=== PATIENT | female | born 1945 | race African-American/Black ===

== ENCOUNTER 2018-05-03 08:55 | Outpatient (CLI) | payer OTHER | END 2018-05-03 10:42 | disposition home or self-care (01) | LOC: LAB 08:55 | DX: E55.9 Vitamin D deficiency, unspecified (principal); E78.2 Mixed hyperlipidemia; Z12.11 Encounter for screening for malignant neoplasm of colon; E11.69 Type 2 diabetes mellitus with other specified complication; E03.8 Other specified hypothyroidism; E11.610 Type 2 diabetes mellitus with diabetic neuropathic arthropathy; R10.84 Generalized abdominal pain; E78.4 Other hyperlipidemia; D50.8 Other iron deficiency anemias; B34.9 Viral infection, unspecified; N39.0 Urinary tract infection, site not specified; Z01.811 Encounter for preprocedural respiratory examination; D64.89 Other specified anemias; N36.8 Other specified disorders of urethra; D68.8 Other specified coagulation defects ==

== ENCOUNTER 2018-05-09 07:23 | Outpatient (CLI) | payer OTHER | END 2018-05-09 07:32 | disposition home or self-care (01) | LOC: LAB 07:23 | DX: D64.89 Other specified anemias (principal); N36.8 Other specified disorders of urethra; E10.9 Type 1 diabetes mellitus without complications; D68.8 Other specified coagulation defects ==

== ENCOUNTER 2018-09-28 07:21 | Outpatient (CLI) | payer OTHER | END 2018-09-28 15:00 | disposition home or self-care (01) | LOC: LAB 07:21 | DX: G30.8 Other Alzheimer's disease (principal); I10 Essential (primary) hypertension; E11.65 Type 2 diabetes mellitus with hyperglycemia; E55.9 Vitamin D deficiency, unspecified; D51.9 Vitamin B12 deficiency anemia, unspecified; E78.2 Mixed hyperlipidemia; E03.8 Other specified hypothyroidism ==